=== PATIENT | female | born 1990 | race Caucasian/White ===

== ENCOUNTER 2016-10-11 08:19 | Emergency (ER) | payer MEDICAID ==
[2016-10-11] MEDS ORDERED: PROPARACAINE 0.5% 15 ML OPHT DROP ONE (08:31)
[2016-10-11] MEDS ORDERED: FLUORESCEIN SODIUM 1 MG STRIP OP ONE ×2 (08:31→08:36)
[2016-10-11 08:34] VITALS: BP 103/59; PULSE 69; RESP 18; TEMP 98.4; O2SAT 95
[2016-10-11] MEDS ORDERED: PROPARACAINE 0.5% 15 ML OPHT DROP OP ONE (08:36)
--- NOTE | 2016-10-11 09:02 | EDPHY ---
H & P Time Seen by Provider: 10/11/16 08:34 HPI/ROS: This patient has a red eye associated with mild discomfort-3/10-left medial eye for 5 days. She explains that there is a foreign body sensation associated with this though she does not clearly have a history of foreign body. She denies any visual changes or any other associated symptoms. She notes no exacerbating factors for the burning discomfort. She has not had this symptom before. ROS: Constitutional: No fevers or other symptoms HEENT: No coryza URI symptoms or other complaints no right eye symptoms. No purulent discharge. Integumentary: No skin lesions. 5 point ROS is otherwise negative. Smoking Status: Never smoked Physical Exam: Physical Exam Vital signs are normal. General: No acute distress Eyes: Pupils equal and react to light. Extraocular motions are intact. Conjunctival injection is present to the medial aspect of left eye. On slit- lamp exam appreciate no corneal abnormalities. No foreign bodies are present. Lids lashes are normal. Anterior chambers clear. Right eye exam is normal. Cardiac: Brisk capillary refill is intact throughout. Skin: No rash or pallor. Neuro: Alert and oriented x3 with no sensorimotor deficits. Initial differential diagnosis: Bacterial conjunctivitis, viral conjunctivitis , allergic conjunctivitis Constitutional: Initial Vital Signs Temperature (C) 36.9 C 10/11/16 08:32 Heart Rate 69 10/11/16 08:32 Respiratory Rate 18 10/11/16 08:32 Blood Pressure 103/59 L 10/11/16 08:32 O2 Sat (%) 95 10/11/16 08:32 O2 Delivery Mode Room Air Allergies/Adverse Reactions: amoxicillin Allergy (Verified 10/11/16 08:34) Home Medications: Medication Instructions Recorded Ofloxacin 0.3% [Ocuflox 0.3% (RX)] 2 drops EACHEYE Q1 #1 btl 10/11/16 MDM/Departure - MDM Medications Given: Discontinued Medications Fluorescein Sodium (Ufrne-P-Qbnfh) 1 mg OP EDNOW ONE Stop: 10/11/16 08:37 Last Admin: 10/11/16 08:56 Dose: 1 mg Proparacaine HCl (Alcaine 0.5%) 1 drops OP EDNOW ONE Stop: 10/11/16 08:37 Last Admin: 10/11/16 08:56 Dose: 1 drop ED Course/Re-evaluation: Discussion: Patient's eye exam reveals localized conjunctival inflammation question previous foreign body now resolved. But does not seem to to be a generalized allergic conjunctivitis given isolation to 1 eye and 1 part of that eye. I counseled her regarding this. I find no evidence of HSV keratitis or other concerning findings on her exam. - Depart Disposition: Home, Routine, Self-Care Clinical Impression: Conjunctivitis Qualifiers: Conjunctivitis type: acute Acute conjunctivitis type: unspecified Laterality: left Qualified Code(s): H10.32 - Unspecified acute conjunctivitis, left eye Condition: Good Instructions: Conjunctivitis (ED) Additional Instructions: Diagnosis: Conjunctivitis Plan: Ocuflox antibiotic drops Ibuprofen or other anti-inflammatory for discomfort if needed Symptoms should improve over the next 3-5 days Follow up with marine equipment sales engineer for further evaluation if you're not improving with the treatment plan. Prescriptions: Ofloxacin 0.3% [Ocuflox 0.3% (RX)] 2 drops EACHEYE Q1 #1 btl Referrals: MENDY BROOKE [Other] - As per Instructions Daniel Shepard MD [Medical Doctor] - As per Instructions
== END 2016-10-11 09:16 | disposition home or self-care (01) ==
LOC: CED 08:19
DX: H10.32 Unspecified acute conjunctivitis, left eye (principal)